=== PATIENT | male | born 1985 | race African-American/Black ===

== ENCOUNTER 2021-01-21 07:22 | Emergency (ER) | payer OTHER ==
[~2021-01-21] VITALS: Ht 188 cm; Wt 97.5 kg
[2021-01-21 08:15] LABS: ABSOLUTE NEUTROPHILS 10.3 thou/uL (1.4-8.2); BASOPHILS 0.3 % (0.0-2.0); EOSINOPHILS 4.4 % (0.0-3.0); HEMATOCRIT 56.7 % (42.0-52.0); HEMOGLOBIN 19.2 gm/dL (14.0-18.0); LYMPHOCYTES 18.9 % (24.0-44.0); MCH 33.1 pg (26.0-34.0); MCHC 33.8 g/dL (28.0-37.0); MCV 97.9 fL (80.0-100.0); MONOCYTES 6.4 % (1.0-8.0); PLATELET COUNT 195 thou/uL (150-400); RBC 5.79 mil/uL (4.50-6.00); RDW 16.7 % (10.5-14.5); WBC 14.7 thou/uL (4.0-11.0)
[2021-01-21 08:17] LABS: URINE BILIRUBIN 3+ (Negative); URINE BLOOD TRACE (Negative); URINE CLARITY SL CLOUDY; URINE COLOR ORANGE; URINE GLUCOSE-RANDOM* TRACE (Negative); URINE KETONES 1+ (Negative); URINE LEUKOCYTES-REFLEX 1+ (Negative); URINE NITRITE-REFLEX POSITIVE (Negative); URINE PROTEIN (DIPSTICK) 2+ (Negative); URINE SPECIFIC GRAVITY >= 1.030 (1.005-1.035)
[2021-01-21 08:19] LABS: CREATININE 1.2 mg/dL (0.7-1.3); POTASSIUM 4.6 mmol/L (3.5-5.1)
[2021-01-21 08:19] LABS: ICTOTEST (BILI CONFIRMATORY) Positive (Negative)
[2021-01-21 08:24] LABS: ALBUMIN 3.6 g/dL (3.4-5.0); DIRECT BILIRUBIN 0.9 mg/dL (<0.1-0.2); TOTAL BILIRUBIN 2.3 mg/dL (0.2-1.0); TOTAL PROTEIN 8.6 g/dL (6.4-8.2)
[2021-01-21 08:31] LABS: HYALINE CASTS 0-3 Few /LPF (None Seen); SQUAMOUS 0-3 Few /LPF (0-3)
[2021-01-21 08:32] LABS: MUCUS 4-6 Moderate strn/LPF (None Seen)
[2021-01-21 08:33] LABS: BACTERIA-REFLEX 1-9 Few /HPF (None Seen); CRYSTALS None Seen /LPF (None Seen); URINE RBC 0-2 Rare /HPF (0-2); URINE WBC-REFLEX 6-15 Few /HPF (0-5)
--- NOTE | 2021-01-21 09:31 | EKG ---
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 01/21/21 0931 [id number] Jeffery Ashby MD, FACC /EPI
[2021-01-21 10:29] VITALS: BP 187/112
[2021-01-22] MEDS ORDERED: PROTONIX40 M2 PO (15:39)
== END 2021-01-21 10:30 | disposition left against medical advice (07) ==
LOC: ER 07:22
PROVIDERS: Emergency Medicine
DX: K85.90 Acute pancreatitis without necrosis or infection, unspecified (principal); N39.0 Urinary tract infection, site not specified; E80.6 Other disorders of bilirubin metabolism

== ENCOUNTER 2021-01-21 15:57 | Inpatient (IN) | payer OTHER ==
[~2021-01-21] VITALS: Ht 188 cm; Wt 101.2 kg
[2021-01-21 16:04] VITALS: BP 139/92
[2021-01-21 17:00] LABS: ABSOLUTE NEUTROPHILS 9.8 thou/uL (1.4-8.2); BASOPHILS 0.3 % (0.0-2.0); EOSINOPHILS 5.5 % (0.0-3.0); HEMATOCRIT 55.6 % (42.0-52.0); HEMOGLOBIN 18.8 gm/dL (14.0-18.0); LYMPHOCYTES 20.8 % (24.0-44.0); MCH 33.1 pg (26.0-34.0); MCHC 33.9 g/dL (28.0-37.0); MCV 97.8 fL (80.0-100.0); MONOCYTES 7.2 % (1.0-8.0); PLATELET COUNT 198 thou/uL (150-400); POLYS 66.2 % (36.0-66.0); RBC 5.69 mil/uL (4.50-6.00); RDW 17.2 % (10.5-14.5); WBC 14.8 thou/uL (4.0-11.0)
[2021-01-21 17:08] LABS: CALCIUM 9.3 mg/dL (8.5-10.1)
[2021-01-21 17:12] LABS: ALBUMIN 3.4 g/dL (3.4-5.0); TOTAL PROTEIN 8.2 g/dL (6.4-8.2)
[2021-01-21 17:13] LABS: POTASSIUM 3.6 mmol/L (3.5-5.1)
[2021-01-21 18:24] VITALS: BP 139/100
[2021-01-21 18:41] VITALS: BP 125/83
[2021-01-21 19:50] VITALS: BP 120/83
[2021-01-21 23:30] VITALS: BP 108/73
[2021-01-22 04:50] VITALS: BP 148/95
--- NOTE | 2021-01-22 06:40 | NUR ---
PT ARRIVED FROM ER VIA CART. PLACED IN ROOM 362. ADMISSION ASSESSMENTS COMPLETED. PT REPORTING ADMOMINAL PAIN LUQ 2/10 AND HAS REMAINED AT THAT THROUGHOUT THE NIGHT. NPO SINCE MIDNIGHT.
[2021-01-22 07:23] VITALS: BP 157/110
[2021-01-22 10:21] LABS: ABSOLUTE NEUTROPHILS 8.2 thou/uL (1.4-8.2); BASOPHILS 0.5 % (0.0-2.0); EOSINOPHILS 6.3 % (0.0-3.0); HEMOGLOBIN 17.7 gm/dL (14.0-18.0); LYMPHOCYTES 17.9 % (24.0-44.0); MCH 33.7 pg (26.0-34.0); MCV 99.3 fL (80.0-100.0); MONOCYTES 8.1 % (1.0-8.0); PLATELET COUNT 164 thou/uL (150-400); POLYS 67.2 % (36.0-66.0); RBC 5.24 mil/uL (4.50-6.00); RDW 16.9 % (10.5-14.5); WBC 12.2 thou/uL (4.0-11.0)
[2021-01-22 10:32] LABS: CALCIUM 8.8 mg/dL (8.5-10.1); CREATININE 0.9 mg/dL (0.7-1.3); POTASSIUM 4.3 mmol/L (3.5-5.1)
[2021-01-22 11:41] VITALS: BP 153/102
[2021-01-22] MEDS ORDERED: PROTONIX40 M2 PO (15:39)
--- NOTE | 2021-01-22 15:42 | NUR ---
met with patient who admits with abd pain. He reports planned dc today if he tolerates intake. Patient works at [employer] He requests letter that he has been inpatient at hospital. patient has no health insurance or PCP. Gave patient Health resource guide and letter regarding admit. Patient independent with adls. plan dc today, no further needs.
[2021-01-22 16:15] VITALS: BP 153/102
--- NOTE | 2021-01-22 17:20 | NUR ---
assumed care of pt at 0700. pt aox4 in no acute distress. denies pain. tolerating solid foods. ok for discharge. to follow up with GI services for outpatient EGD - pt agreeable and understanding.
== END 2021-01-22 17:05 | disposition home or self-care (01) | DRG 391 ==
LOC: ER 15:57 → EROBS 17:58 → 3W 18:30
PROVIDERS: Nurse Practitioner; Physician Assistant; ADMIT Hospitalist; ATTEND Hospitalist
DX: K29.80 Duodenitis without bleeding (principal); K85.90 Acute pancreatitis without necrosis or infection, unspecified; J44.9 Chronic obstructive pulmonary disease, unspecified; F17.210 Nicotine dependence, cigarettes, uncomplicated; F10.129 Alcohol abuse with intoxication, unspecified; D72.829 Elevated white blood cell count, unspecified; K21.9 Gastro-esophageal reflux disease without esophagitis; K27.9 Peptic ulcer, site unspecified, unspecified as acute or chronic, without hemorrhage or perforation; Z79.899 Other long term (current) drug therapy
CPT/HCPCS: 10879